=== PATIENT | male | born 1985 | race African-American/Black ===

== ENCOUNTER 2020-08-12 13:44 | Emergency (ER) | payer MEDICAID ==
[~2020-08-12] VITALS: Ht 175.3 cm; Wt 90.7 kg
[2020-08-12] MEDS ORDERED: BLOOD PRESSURE (14:02)
--- NOTE | 2020-08-12 14:02 | NUR ---
PT DOES NOT REMEMBER THE NAME OF HOME MEDICATION.
[2020-08-12 14:13] LABS: BASOPHILS # (AUTO) 0.1 K/uL (0.0-8.0); BASOPHILS % (AUTO) 1.1 % (0.0-2.0); EOSINOPHILS # (AUTO) 0.1 K/uL (0.0-0.7); EOSINOPHILS % (AUTO) 0.6 % (0.0-7.0); HEMATOCRIT 37.9 % (36.7-47.1); HEMOGLOBIN 11.9 g/dL (12.5-16.3); LYMPHOCYTES # (AUTO) 2.1 K/uL (20.0-40.0); LYMPHOCYTES % (AUTO) 23.3 % (20.5-51.5); MEAN CORPUSCULAR HEMOGLOBIN 23.7 uug (23.8-33.4); MEAN CORPUSCULAR HGB CONC 31 g/dL (32.5-36.3); MEAN CORPUSCULAR VOLUME 75.6 fL (73.0-96.2); MONOCYTES # (AUTO) 0.7 K/uL (2.0-10.0); MONOCYTES % (AUTO) 7.3 % (0.0-11.0); NEUTROPHILS # (AUTO) 6.2 K/uL (1.8-8.9); NEUTROPHILS % (AUTO) 67.7 % (38.5-71.5); PLATELET COUNT (AUTO) 631 K/uL (152-348); RED BLOOD CELL COUNT(AUTO) 5.01 MIL/uL (4.06-5.63); WHITE BLOOD COUNT (AUTO) 9.2 K/uL (3.6-10.2)
[2020-08-12] MEDS ORDERED: PANTOPRAZOLE SODIUM 40 MG VIAL IV ONE (14:15)
[2020-08-12] MEDS ORDERED: IV NORMAL SALINE 1000 ML BAG IV ONE (14:15)
[2020-08-12] MEDS ORDERED: MORPHINE SULFATE 4 MG/1 ML DISP.SYRIN IV ONE ×2 (14:15→14:45)
[2020-08-12] MEDS ORDERED: ONDANSETRON 4 MG/2 ML VIAL IV ONE ×2 (14:15→18:15)
[2020-08-12] MEDS ORDERED: MORPHINE SULFATE 4 MG/1 ML DISP.SYRIN ONE ×2 (14:16→14:43)
[2020-08-12] MEDS ORDERED: PANTOPRAZOLE SODIUM 40 MG VIAL ONE (14:16)
[2020-08-12] MEDS ORDERED: ONDANSETRON 4 MG/2 ML VIAL ONE ×2 (14:16→18:15)
[2020-08-12 14:22] LABS: CREATININE 1.4 mg/dL (0.6-1.3)
[2020-08-12 14:34] LABS: BILIRUBIN,DIRECT 0.1 mg/dL (0.0-0.2); BILIRUBIN,TOTAL 0.6 mg/dL (0.2-1.0); TOTAL PROTEIN, SERUM 8.2 g/dL (6.4-8.2)
[2020-08-12] MEDS ORDERED: LIDOCAINE VISCUS 2% 15 ML UDC ONE (14:39)
[2020-08-12] MEDS ORDERED: MAG HYDROX/AL HYDROX/SIMETH 30 ML LIQUID UDC ONE (14:39)
[2020-08-12] MEDS ORDERED: MAG HYDROX/AL HYDROX/SIMETH 30 ML LIQUID UDC PO ONE (14:45)
[2020-08-12] MEDS ORDERED: LIDOCAINE VISCUS 2% 15 ML UDC MM ONE (14:45)
--- NOTE | 2020-08-12 15:33 | NUR ---
Spoke to Lewis plata, clinical info provided. Addendum: 08/12/20 at 1820 by MYOUABIAN Spoke to from [employer].
[2020-08-12] MEDS ORDERED: HYDROMORPHONE 1 MG/1 ML DISP.SYRIN ONE ×2 (15:58→18:15)
[2020-08-12] MEDS ORDERED: HYDROMORPHONE 1 MG/1 ML DISP.SYRIN IV ONE ×2 (16:00→18:15)
--- NOTE | 2020-08-12 18:30 | NUR ---
miky from [facility] called giving the transfer info as following; pt going to [facility], room 220[address], recieving nurse radha, , eta for ambulance 45 minutes
--- NOTE | 2020-08-12 18:49 | NUR ---
Pt left Er w/ steady gait.
--- NOTE | 2020-08-12 18:49 | NUR ---
IV removed. Catheter intact and site benign. Pressure and 4x4 gauze applied to site. No bleeding noted.
--- NOTE | 2020-08-12 18:49 | NUR ---
Patient does not wish to proceed with medical care recommended by Dr. Barnes). Patient given information related to possible complications, up to and including , which could occur as a result of leaving the hospital at this time. Patient verbalizes understanding of risks involved due to leaving against medical advice. Patient has signed AMA form.
[2020-08-12 19:09] VITALS: BP 155/105
[2020-08-12 19:24] LABS: BAND % (MANUAL) 2 % (0-10); EOSINOPHILS % (MANUAL) 1 % (0-8); LYMPHOCYTES % (MANUAL) 33 % (20-40); MONOCYTES % (MANUAL) 2 % (2-10); NEUTROPHILS % (MANUAL) 62 % (42-75)
== END 2020-08-12 19:11 | disposition left against medical advice (07) ==
LOC: ER 13:44
DX: K85.90 Acute pancreatitis without necrosis or infection, unspecified (principal); D47.3 Essential (hemorrhagic) thrombocythemia; N28.9 Disorder of kidney and ureter, unspecified; Z20.828 Contact with and (suspected) exposure to other viral communicable diseases
CPT/HCPCS: 36415; 71045; 80048; 80076; 83690; 85007; 85025; 87426; 93005; 96361; 96374; 96375; 96376; 99285; C9113; J1170 ×2; J2270 ×2; J2405 ×2; 70030-TC; A4663; J7030

== ENCOUNTER 2023-01-07 05:26 | Emergency (ER) | payer BC, OTHER ==
[~2023-01-07] VITALS: Ht 175.3 cm; Wt 88.5 kg
[~2023-01-07 05:26] MED LIST: BLOOD PRESSURE
--- NOTE | 2023-01-07 05:41 | NUR ---
Patient placed in room 2A
[2023-01-07] MEDS ORDERED: IV NORMAL SALINE 1000 ML BAG IV ONE ×2 (06:00→07:15)
[2023-01-07] MEDS ORDERED: HYDROMORPHONE 1 MG/1 ML DISP.SYRIN IV ONE ×3 (06:00→09:00)
[2023-01-07] MEDS ORDERED: ONDANSETRON 4 MG/2 ML VIAL IV ONE (06:00)
[2023-01-07 06:16] LABS: HEMATOCRIT 42.9 % (36.7-47.1); MEAN CORPUSCULAR HEMOGLOBIN 31.7 uug (23.8-33.4); MEAN CORPUSCULAR VOLUME 91.5 fL (73.0-96.2); PLATELET COUNT (AUTO) 277 K/uL (152-348)
[2023-01-07] MEDS ORDERED: ONDANSETRON 4 MG/2 ML VIAL ONE (06:27)
[2023-01-07 06:28] LABS: CREATININE 0.9 mg/dL (0.6-1.3); POTASSIUM 3.1 mmol/L (3.5-5.1)
[2023-01-07] MEDS ORDERED: HYDROMORPHONE 1 MG/1 ML DISP.SYRIN ONE ×4 (06:28→08:49)
[2023-01-07 06:34] LABS: BILIRUBIN,DIRECT 0.9 mg/dL (0.0-0.2); BILIRUBIN,TOTAL 1.8 mg/dL (0.2-1.0); TOTAL PROTEIN, SERUM 8.5 g/dL (6.4-8.2)
--- NOTE | 2023-01-07 06:42 | NUR ---
Dr. Ramires evaluating patient at bedside. MSE in progress
[2023-01-07] MEDS ORDERED: POTASSIUM CHLORIDE 20 MEQ TAB.PRT.SR ONE (07:06)
--- NOTE | 2023-01-07 07:12 | NUR ---
Report given to Linda WILEY
[2023-01-07] MEDS ORDERED: POTASSIUM CHLORIDE 20 MEQ TAB.PRT.SR PO ONE (07:15)
--- NOTE | 2023-01-07 07:15 | NUR ---
Received pt resting in bed, watching TV, NAD noted at this time.
--- NOTE | 2023-01-07 10:40 | NUR ---
Dr Ramires at the bedside discussing pt's test results and care plan.
[2023-01-07] MEDS ORDERED: ACETAMINOPHEN 325 MG TABLET ONE (10:58)
[2023-01-07] MEDS ORDERED: HYDROCODONE/APAP 5-325MG TABLET ONE (10:58)
[2023-01-07] MEDS ORDERED: ACETAMINOPHEN 325 MG TABLET PO ONE (11:00)
[2023-01-07] MEDS ORDERED: HYDROCODONE/APAP 5-325MG TABLET PO ONE (11:00)
[2023-01-07] MEDS ORDERED: HYDR-4209 PO (11:05)
[2023-01-07] MEDS ORDERED: ONDA4TAB11 PO (11:05)
[2023-01-07] MEDS ORDERED: CHLORDIAZEPOXIDE HCL 25 MG CAPSULE ONE (11:13)
[2023-01-07] MEDS ORDERED: CHLORDIAZEPOXIDE HCL 25 MG CAPSULE PO ONE (11:15)
--- NOTE | 2023-01-07 11:16 | NUR ---
Patient does not wish to proceed with medical care recommended by Dr. Tapia). Patient given information related to possible complications, up to and including , which could occur as a result of leaving the hospital at this time. Patient verbalizes understanding of risks involved due to leaving against medical advice. Patient has signed AMA form. Pt walked out of w/ steady gait.
[2023-01-07 11:20] VITALS: BP 132/90
== END 2023-01-07 11:21 | disposition home or self-care (01) ==
LOC: ER 05:26
DX: K85.90 Acute pancreatitis without necrosis or infection, unspecified (principal); K83.8 Other specified diseases of biliary tract; I10 Essential (primary) hypertension; E11.9 Type 2 diabetes mellitus without complications
CPT/HCPCS: 99285; 96374; 76705; 96361; 96375; 80076; 80048; 83690; 85025; 93005; 96376; J2405; J1170 ×4; J7040; A4663

== ENCOUNTER 2023-04-23 20:03 | Emergency (ER) | payer BC, OTHER ==
[~2023-04-23] VITALS: Ht 175.3 cm; Wt 86.2 kg
[~2023-04-23 20:03] MED LIST changes: +HYDR-4209 PO; +ONDA4TAB11 PO
[2023-04-23] MEDS ORDERED: ONDANSETRON 4 MG/2 ML VIAL IV ONE (21:45)
[2023-04-23] MEDS ORDERED: IV NORMAL SALINE 500 ML BAG IV ONE ×2 (21:45)
[2023-04-23] MEDS ORDERED: MORPHINE SULFATE 4 MG/1 ML DISP.SYRIN IV ONE (21:45)
[2023-04-23] MEDS ORDERED: FAMOTIDINE. 20 MG/2 ML VIAL IV ONE ×4 (21:45→22:20)
[2023-04-23] MEDS ORDERED: HYDROMORPHONE 1 MG/1 ML DISP.SYRIN IV ONE (21:45)
[2023-04-23 21:51] LABS: BASOPHILS # (AUTO) 0.1 K/UL (0.0-0.2); BASOPHILS % (AUTO) 0.6 % (0.0-2.0); EOSINOPHILS % (AUTO) 0.1 % (0.0-7.0); HEMATOCRIT 40.7 % (36.7-47.1); HEMOGLOBIN 13.4 g/dL (12.5-16.3); LYMPHOCYTES # (AUTO) 1.3 K/uL (0.8-4.8); LYMPHOCYTES % (AUTO) 8.2 % (20.5-51.5); MEAN CORPUSCULAR HEMOGLOBIN 30.4 uug (23.8-33.4); MEAN CORPUSCULAR HGB CONC 33 g/dL (32.5-36.3); MEAN CORPUSCULAR VOLUME 92.5 fL (73.0-96.2); MONOCYTES # (AUTO) 1.1 K/uL (0.1-1.30); MONOCYTES % (AUTO) 6.7 % (0.0-11.0); NEUTROPHILS # (AUTO) 13.6 K/uL (1.8-8.9); NEUTROPHILS % (AUTO) 84.4 % (38.5-71.5); PLATELET COUNT (AUTO) 572 K/uL (152-348); RED CELL DISTRIBUTION WIDTH 15.4 % (12.1-16.2); WHITE BLOOD COUNT (AUTO) 16.2 K/uL (3.6-10.2)
[2023-04-23 21:55] LABS: DIFFERENTIAL COMMENT 1
[2023-04-23] MEDS ORDERED: AMLO-212 PO (22:09)
[2023-04-23] MEDS ORDERED: INSU100V28 SUBCUT (22:09)
[2023-04-23 22:10] LABS: ETHANOL < 3 MG/DL (0-10)
[2023-04-23] MEDS ORDERED: HYDROMORPHONE 1 MG/1 ML DISP.SYRIN ONE (22:14)
[2023-04-23 22:19] LABS: CALCIUM 9.1 mg/dL (8.5-10.1); CARBON DIOXIDE 27 mmol/L (21-32); CHLORIDE 100 mmol/L (98-107); CREATININE 1.3 mg/dL (0.6-1.3); POTASSIUM 3.4 mmol/L (3.5-5.1); SODIUM SERUM 140 mmol/L (136-145); UREA NITROGEN, BLOOD 18 mg/dL (7-18)
[2023-04-23 22:23] LABS: GLUCOSE 54 mg/dL (74-106)
[2023-04-23] MEDS ORDERED: ONDANSETRON 4 MG/2 ML VIAL ONE (22:28)
[2023-04-23 22:31] LABS: ALANINE AMINOTRANSFERASE 83 U/L (16-63); ALBUMIN 3.5 g/dL (3.4-5.0); ALKALINE PHOSPHATASE 81 U/L (50-136); ASPARTATE AMINOTRANSFERASE 52 U/L (15-37); BILIRUBIN,TOTAL 4.3 mg/dL (0.2-1.0); LIPASE 240 U/L (73-393); TOTAL PROTEIN, SERUM 8.5 g/dL (6.4-8.2)
[2023-04-23 23:32] LABS: CALCIUM 7.8 mg/dL (8.5-10.1); CREATININE 1.2 mg/dL (0.6-1.3); POTASSIUM 3.2 mmol/L (3.5-5.1)
[2023-04-23 23:38] LABS: ALBUMIN 2.8 g/dL (3.4-5.0); BILIRUBIN,TOTAL 3.7 mg/dL (0.2-1.0); TOTAL PROTEIN, SERUM 7.2 g/dL (6.4-8.2)
[2023-04-24] MEDS ORDERED: IV NORMAL SALINE 500 ML BAG IV ONE (01:00)
[2023-04-24] MEDS ORDERED: HYDROMORPHONE 1 MG/1 ML DISP.SYRIN IV ONE (01:00)
[2023-04-24] MEDS ORDERED: HYDROMORPHONE 1 MG/1 ML DISP.SYRIN ONE (01:14)
[2023-04-24 02:00] VITALS: O2SAT 98
[2023-04-24] MEDS ORDERED: ONDA4TAB11 PO (02:15)
== END 2023-04-24 02:40 | disposition home or self-care (01) ==
LOC: ER 20:03
DX: E80.6 Other disorders of bilirubin metabolism (principal); E11.9 Type 2 diabetes mellitus without complications; Z79.4 Long term (current) use of insulin; Z79.899 Other long term (current) drug therapy
CPT/HCPCS: 36415; 76705; 83690; 85025; A4663; G0480; J1170; J2405; J3490; J7040